=== PATIENT | female | born 1955 | race African-American/Black ===

== ENCOUNTER 2023-09-04 18:38 | Emergency (ER) | payer OTHER ==
[~2023-09-04] VITALS: Ht 165.1 cm; Wt 64.0 kg
[2023-09-04 18:42] VITALS: TEMP 98.5; O2SAT 99
[2023-09-04] MEDS ORDERED: CLOPIDOGREL 75MG TABLET PO ONE (20:00)
[2023-09-04] MEDS ORDERED: ASPIRIN 325MG TABLET PO ONE (20:00)
[2023-09-04 20:09] LABS: BASOPHILS % 0.9 % (0.0-2.0); EOSINOPHILS % 2.1 % (0.0-5.0); HEMATOCRIT. 41.2 % (36.0-48.0); HEMOGLOBIN. 13.7 g/dL (12.0-16.0); LYMPHOCYTES % 45.6 % (20.0-50.0); MEAN CORPUSCULAR HEMOGLOBIN 30.9 pg (28.0-32.0); MEAN CORPUSCULAR HGB CONC 33.3 g/dL (31.0-37.0); MEAN CORPUSCULAR VOLUME 92.7 fL (81.0-99.0); MEAN PLATELET VOLUME 9.6 fl (7.4-10.4); MONOCYTES % 7.3 % (2.0-8.0); NEUTROPHILS % 44.1 % (40.0-76.0); PLATELET 251 x1000/uL (130-400); RED BLOOD CELL COUNT 4.44 mill/uL (4.2-5.4); RED CELL DISTRIBUTION WIDTH 13.3 % (11.6-14.6); WHITE BLOOD COUNT 11.2 x1000/uL (4.5-11.0)
[2023-09-04 20:18] LABS: PROTHROMBIN TIME 10.5 sec (9.6-11.0)
[2023-09-04 20:32] LABS: ALANINE AMINOTRANSFERASE 13 IU/L (10-49); ALBUMIN 4.1 g/dL (3.2-4.8); ASPARTATE AMINOTRANSFERASE 16 IU/L (<34); BILIRUBIN TOTAL 0.3 mg/dL (0.1-1.0); CALCIUM 9.5 mg/dL (8.7-10.4); CARBON DIOXIDE 31 mEq/L (21-32); CHLORIDE 103 mEq/L (98-107); CREATININE 0.8 mg/dL (0.6-1.0); GLUCOSE 98 mg/dL (70-105); POTASSIUM 3.5 mEq/L (3.5-5.1); SODIUM 142 mEq/L (136-145); TROPONIN I HIGH SENSITIVITY 7 ng/L (3.0-34); UREA NITROGEN BLOOD 14 mg/dL (9-23)
[2023-09-04] MEDS ORDERED: ONDANSETRON HCL 4MG/2ML INJ IV ONE (20:45)
[2023-09-04 23:27] VITALS: BP 170/84; PULSE 69; RESP 16
== END 2023-09-04 23:20 | disposition short-term general hospital (02) ==
LOC: ER 18:38
DX: D32.9 Benign neoplasm of meninges, unspecified (principal); R47.81 Slurred speech; I10 Essential (primary) hypertension
CPT/HCPCS: 99291; 70496; 96374; 71045; 80053; 85025; 85610; 84484; 36415; 70498; 93005; 70450; J2405

== ENCOUNTER 2024-11-19 07:34 | Emergency (ER) | payer OTHER ==
[~2024-11-19] VITALS: Ht 157.5 cm; Wt 70.0 kg
[2024-11-19 07:51] VITALS: O2SAT 98
[2024-11-19 09:19] LABS: BASOPHILS % 0.6 % (0.0-2.0); HEMOGLOBIN. 13.4 g/dL (12.0-16.0); LYMPHOCYTES % 13.4 % (20.0-50.0); MEAN CORPUSCULAR HEMOGLOBIN 30.1 pg (28.0-32.0); MEAN CORPUSCULAR HGB CONC 32.8 g/dL (31.0-37.0); MEAN CORPUSCULAR VOLUME 91.8 fL (81.0-99.0); MEAN PLATELET VOLUME 9.6 fl (7.4-10.4); MONOCYTES % 3.8 % (2.0-8.0); NEUTROPHILS % 82.2 % (40.0-76.0); PLATELET 312 x1000/uL (130-400); RED BLOOD CELL COUNT 4.46 mill/uL (4.2-5.4); RED CELL DISTRIBUTION WIDTH 13.8 % (11.6-14.6); WHITE BLOOD COUNT 15.3 x1000/uL (4.5-11.0)
[2024-11-19 09:32] LABS: CALCIUM 9.2 mg/dL (8.7-10.4); CARBON DIOXIDE 26 mEq/L (21-32); CHLORIDE 104 mEq/L (98-107); POTASSIUM 3.9 mEq/L (3.5-5.1); SODIUM 140 mEq/L (136-145)
[2024-11-19 09:37] LABS: CREATININE 0.8 mg/dL (0.6-1.0)
[2024-11-19 09:38] LABS: GLUCOSE 179 mg/dL (70-105); UREA NITROGEN BLOOD 13 mg/dL (9-23)
[2024-11-19 09:41] LABS: ETHANOL BLOOD < 10 mg/dL (<10); TROPONIN I HIGH SENSITIVITY < 4 ng/L (3.0-34)
[2024-11-19] MEDS: ONDANSETRON HCL 4MG/2ML INJ IV ONE (09:45)
[2024-11-19] MEDS: ASPIRIN 300MG SUPP PR ONE (11:51)
[2024-11-19 13:31] VITALS: BP 159/69; PULSE 75; RESP 16; TEMP 36.7; O2SAT 98
[2024-11-19] MEDS: HYDRALAZINE HCL 25MG TABLET PO ONE (13:31)
== END 2024-11-19 13:43 | disposition short-term general hospital (02) ==
LOC: ER 07:34 → EDBEDREQ 12:02 → EDBEDREQTM 12:02 → ER 13:43
DX: I63.9 Cerebral infarction, unspecified (principal); I10 Essential (primary) hypertension
CPT/HCPCS: 80048; 80320; 85025; 84484; 36415; 71045; 70450; 96374; 99291; J2405; A4663; A4606; G0480